=== PATIENT | male | born 1995 | race Caucasian/White ===

== ENCOUNTER 2017-12-17 09:42 | Emergency (ER) | payer SELFPAY ==
[2017-12-17] MEDS ORDERED: Fluorescein Opthalmic Strip ONE (10:11)
[2017-12-17] MEDS ORDERED: Proparacaine 0.5% Opth 15 ML BOT ONE (10:11)
== END 2017-12-17 11:10 | disposition home or self-care (01) ==
LOC: ERS 09:42
DX: H00.034 Abscess of left upper eyelid (principal)
CPT/HCPCS: 99283

== ENCOUNTER 2020-04-09 05:56 | Emergency (ER) | payer SELFPAY ==
[2020-04-09] MEDS ORDERED: Ondansetron ODT 8 MG TAB ONE (06:38)
== END 2020-04-09 06:44 | disposition home or self-care (01) ==
LOC: ERS 05:56
DX: R19.7 Diarrhea, unspecified (principal); R11.0 Nausea
CPT/HCPCS: 99283; Q0162

== ENCOUNTER 2022-11-17 08:54 | Outpatient (CLI) | payer BC | END 2022-11-17 08:55 | disposition home or self-care (01) | LOC: DTY/OP 08:54 | PROVIDERS: ATTEND Physician Assistant | DX: E66.01 Morbid (severe) obesity due to excess calories (principal); Z68.41 Body mass index [BMI] 40.0-44.9, adult | CPT/HCPCS: 97802 ==